=== PATIENT | male | born 1965 | race Caucasian/White ===

== ENCOUNTER 2022-04-08 00:34 | Day surgery (SDC) | payer OTHER, SELFPAY ==
[2022-03-25 10:43] VITALS: BMI 34.4
--- NOTE | 2022-04-07 10:47 | P.HP_ITS ---
History of Present Illness History of Present Illness Consent: Risks, benefits, and alternatives have been discussed and questions answered. Patient agrees to proceed with procedure. Chief complaint: neoplasm screening Narrative: Noe Ferrer is a 56 year old male Referred for colon cancer screening. Review of Systems Review of Systems: All systems reviewed & are unremarkable except as noted in HPI and below PMFSH Past Medical History Medical History Arthritis GERD (gastroesophageal reflux disease) Family History Family History Father Heart disease Malignant neoplasm of prostate Mother No problems noted. Sibling CLL (chronic lymphocytic leukemia) Social History Social History Smoking status: Never smoker Alcohol intake: current Drinks per week: 14 Substance use: never Living arrangements: with family Occupation/Education: occupation Additional occupation/education comments: [employer] at [employer] Spiritual care concerns: No Meds Home Medications and Allergies Home Medications Medication Instructions Recorded Confirmed Type celecoxib 200 mg capsule (Celebrex) 200 mg PO DAILY PRN pain #90 caps 02/04/22 03/25/22 Rx lisinopril 10 mg tablet 10 mg PO DAILY #90 tabs 02/04/22 03/25/22 Rx tadalafil 10 mg tablet (Cialis) 10 mg PO DAILY #90 tabs 02/04/22 03/25/22 Rx Allergies Allergy/AdvReac Type Severity Reaction Status Date / Time No Known Allergies Allergy Mild Verified 04/08/22 08:26 Exam Const: General: alert Orientation/consciousness: patient oriented x3 Resp: Auscultation: clear to auscultation bilaterally Cardio: Rhythm: regular rhythm GI: GI Palp: Yes Soft to palpation and No Tenderness to palpation present (GI) Neuro: General: patient oriented x3 Assessment and Plan Assessment and plan (1) Colon cancer screening: Code(s): Z12.11 - Encounter for screening for malignant neoplasm of colon Status: Acute Assessment and Plan: Colonoscopy with possible biopsy or polypectomy or cautery or injection of substances.
[2022-04-08 08:27] VITALS: BP 147/88; PULSE 66; RESP 18; TEMP 36.1; O2SAT 96
[2022-04-08] MEDS: LACTATED RINGERS 1,000 ML 150 ML IV CONT (08:37)
--- NOTE | 2022-04-08 09:02 | P.PNAN_ITS ---
Anes - Initial Pre Proc Eval Procedure: Operation Date: 04/08/22 09:15 Proposed Procedures p Screening Colonoscopy - Nestor James MD Date/Time: 04/08/22 09:02 Surgeon: Nestor James MD Pre Op Diagnosis: neoplasm screening Patient Data Age: 56 Gender: M Height: 1.78 m Weight: 112 kg Last Vital Signs Temp 97 F L 04/08/22 08:27 Pulse 66 04/08/22 08:27 Resp 18 04/08/22 08:27 BP 147/88 H 04/08/22 08:27 Pulse Ox 96 04/08/22 08:27 O2 Del Method Room Air 04/08/22 08:27 Allergies Allergy/AdvReac Type Severity Reaction Status Date / Time No Known Allergies Allergy Mild Verified 04/08/22 08:26 Home Medications Medication Instructions Recorded Confirmed Type celecoxib 200 mg capsule (Celebrex) 200 mg PO DAILY PRN pain #90 caps 02/04/22 03/25/22 Rx lisinopril 10 mg tablet 10 mg PO DAILY #90 tabs 02/04/22 03/25/22 Rx tadalafil 10 mg tablet (Cialis) 10 mg PO DAILY #90 tabs 02/04/22 03/25/22 Rx Patient hx anesthesia problems: none Family hx anesthesia problems: none Results Review: All pre-operative results and documents have been reviewed as part of the pre- operative evaluation. [facility] Past Medical History Medical History Arthritis GERD (gastroesophageal reflux disease) Family History Family History Father Heart disease Malignant neoplasm of prostate Mother No problems noted. Sibling CLL (chronic lymphocytic leukemia) Social History Social History Smoking status: Never smoker Alcohol intake: current Drinks per week: 14 Substance use: never Living arrangements: with family Occupation/Education: occupation Additional occupation/education comments: [employer] at [employer] Spiritual care concerns: No Anes - Eval Final PreProcedure Day of Procedure 04/08/22 09:02 Patient weight: obese Heart: regular rate and rhythm Lungs: clear to auscultation Airway: Mallampati scale class II Neurological: alert and oriented Last oral intake: >/= 8 hours ASA classification: II Emergent: no Anesthetic plan: proceed Anesthesia type and monitoring: general GIVS and standard monitoring Results Review: All pre-operative results and documents have been reviewed as part of the pre- operative evaluation. Informed Consent: The patient's anesthetic plan and its attendant risks and benefits were discussed with the patient/family/POA. Questions were solicited and answers provided to the satisfaction of the patient/family/POA.
[2022-04-08] MEDS: SIMETHICONE ORAL SUSPENSION 20 MG/0.3 ML 30 ML BOTTLE 0.6 ML IRRIGATION (09:15)
[2022-04-08 09:25] VITALS: BP 138/69; PULSE 76; RESP 22; O2SAT 91
[2022-04-08 09:35] VITALS: BP 137/65; PULSE 69; RESP 22; O2SAT 96
[2022-04-08 09:45] VITALS: BP 132/91; PULSE 70; RESP 21; O2SAT 96
== END 2022-04-08 09:57 | disposition home or self-care (01) ==
PROVIDERS: PCP Family Medicine; Visit Provider Internal Medicine Gastroenterology
PROC: 0DJD8ZZ Inspection of Lower Intestinal Tract, Via Natural or Artificial Opening Endoscopic (ICD-10-PCS; CPT 45378; principal; 2022-04-08 09:15)
DX: Z12.11 Encounter for screening for malignant neoplasm of colon (principal); K57.30 Diverticulosis of large intestine without perforation or abscess without bleeding; E66.9 Obesity, unspecified; Z68.35 Body mass index [BMI] 35.0-35.9, adult
CPT/HCPCS: 45378; J2704; J7120

== ENCOUNTER 2022-09-21 06:15 | Day surgery (SDC) | payer OTHER, SELFPAY ==
[2022-09-13 11:55] VITALS: BMI 35.1
[2022-09-21 10:37] VITALS: BP 154/72; PULSE 76; RESP 18; TEMP 36.2; O2SAT 98
[2022-09-21] MEDS: LACTATED RINGERS 1,000 ML 150 ML IV CONT (10:50)
--- NOTE | 2022-09-21 11:03 | PM.HPGS ---
History of Present Illness History of Present Illness Consent: Risks, benefits, and alternatives have been discussed and questions answered. Patient agrees to proceed with procedure. Chief complaint: Localized swelling, mass and lump, neck. Narrative: Noe Ferrer is a 56 year old male Who recently has had a great deal of indigestion and more recently has had the sensation of something like a lump or something stuck in the throat. Review of Systems Review of Systems: All systems reviewed & are unremarkable except as noted in HPI and below PMFSH Past Medical History Medical History Arthritis GERD (gastroesophageal reflux disease) Family History Family History Father Heart disease Malignant neoplasm of prostate Mother No problems noted. Sibling CLL (chronic lymphocytic leukemia) Social History Social History Smoking status: Never smoker Alcohol intake: current Drinks per week: 14 Substance use: never Living arrangements: alone Occupation/Education: occupation Additional occupation/education comments: [employer] at [employer] Spiritual care concerns: No Meds Home Medications and Allergies Home Medications Medication Instructions Recorded Confirmed Type lisinopril 10 mg tablet 10 mg PO DAILY #90 tabs 08/05/22 09/13/22 Rx tadalafil 10 mg tablet 10 mg PO DAILY #90 tabs 08/16/22 09/13/22 Rx tramadol 50 mg tablet 50 mg PO BID PRN pain #30 tabs 08/23/22 09/13/22 Rx celecoxib 200 mg capsule (Celebrex) 200 mg PO DAILY 09/13/22 09/13/22 History Allergies Allergy/AdvReac Type Severity Reaction Status Date / Time No Known Allergies Allergy Mild Verified 09/21/22 10:36 Vital Signs Vital Signs - 24 hr 09/21/22 10:37 Temperature 36.2 C L Pulse Rate 76 Respiratory Rate 18 Blood Pressure 154/72 H Pulse Oximetry 98 Oxygen Delivery Room Air Exam Const: General: alert Orientation/consciousness: patient oriented x3 Resp: Auscultation: clear to auscultation bilaterally Cardio: Rhythm: regular rhythm GI: GI Palp: Yes Soft to palpation and No Tenderness to palpation present (GI) Neuro: General: patient oriented x3 Assessment and Plan Assessment and plan (1) GERD (gastroesophageal reflux disease): Code(s): K21.9 - Gastro-esophageal reflux disease without esophagitis Status: Acute Assessment and Plan: EGD with possible biopsy or dilatation or cautery.
--- NOTE | 2022-09-21 11:28 | P.PNAN_ITS ---
Anes - Initial Pre Proc Eval Procedure: Operation Date: 09/21/22 13:00 Proposed Procedures p Esophagogastroduodenoscopy - Nestor James MD Date/Time: 09/21/22 11:28 Surgeon: Nestor James MD Pre Op Diagnosis: Localized swelling, mass and lump, neck. Patient Data Age: 56 Gender: M Height: 1.78 m Weight: 112.7 kg Last Vital Signs Temp 97.2 F L 09/21/22 10:37 Pulse 76 09/21/22 10:37 Resp 18 09/21/22 10:37 BP 154/72 H 09/21/22 10:37 Pulse Ox 98 09/21/22 10:37 O2 Del Method Room Air 09/21/22 10:37 Allergies Allergy/AdvReac Type Severity Reaction Status Date / Time No Known Allergies Allergy Mild Verified 09/21/22 10:36 Home Medications Medication Instructions Recorded Confirmed Type lisinopril 10 mg tablet 10 mg PO DAILY #90 tabs 08/05/22 09/13/22 Rx tadalafil 10 mg tablet 10 mg PO DAILY #90 tabs 08/16/22 09/13/22 Rx tramadol 50 mg tablet 50 mg PO BID PRN pain #30 tabs 08/23/22 09/13/22 Rx celecoxib 200 mg capsule (Celebrex) 200 mg PO DAILY 09/13/22 09/13/22 History Patient hx anesthesia problems: none Family hx anesthesia problems: none Results Review: All pre-operative results and documents have been reviewed as part of the pre- operative evaluation. [facility] Past Medical History Medical History Arthritis GERD (gastroesophageal reflux disease) Family History Family History Father Heart disease Malignant neoplasm of prostate Mother No problems noted. Sibling CLL (chronic lymphocytic leukemia) Social History Social History Smoking status: Never smoker Alcohol intake: current Drinks per week: 14 Substance use: never Living arrangements: alone Occupation/Education: occupation Additional occupation/education comments: [employer] at [employer] Spiritual care concerns: No Anes - Eval Final PreProcedure Day of Procedure 09/21/22 11:28 Patient weight: obese Heart: regular rate and rhythm Lungs: clear to auscultation Airway: Mallampati scale class III Neurological: alert and oriented Last oral intake: >/= 8 hours ASA classification: III Emergent: no Anesthetic plan: proceed Anesthesia type and monitoring: general GIVS and standard monitoring Results Review: All pre-operative results and documents have been reviewed as part of the pre- operative evaluation. Informed Consent: The patient's anesthetic plan and its attendant risks and benefits were discussed with the patient/family/POA. Questions were solicited and answers provided to the satisfaction of the patient/family/POA.
[2022-09-21 11:50] VITALS: BP 135/91; PULSE 77; RESP 20; O2SAT 96
[2022-09-21 12:00] VITALS: BP 139/91; PULSE 75; RESP 23; O2SAT 99
[2022-09-21 12:10] VITALS: BP 151/97; PULSE 74; RESP 19; O2SAT 99
== END 2022-09-21 12:21 | disposition home or self-care (01) ==
PROVIDERS: PCP Nurse Practitioner Family; Visit Provider Internal Medicine Gastroenterology
PROC: 0DJ08ZZ Inspection of Upper Intestinal Tract, Via Natural or Artificial Opening Endoscopic (ICD-10-PCS; CPT 43235; principal; 2022-09-21 13:00)
DX: K21.9 Gastro-esophageal reflux disease without esophagitis (principal); E66.9 Obesity, unspecified; Z68.35 Body mass index [BMI] 35.0-35.9, adult
CPT/HCPCS: 43239; 73721; 88305; J3010; J7120

== ENCOUNTER 2022-09-21 08:53 | Outpatient (CLI) | payer OTHER, SELFPAY ==
--- NOTE | ~2022-09-21 | MR_ITS ---
EXAMINATION: MR knee RT wo con DATE: 09/21/2022 09:29 INDICATION: Unilateral primary osteoarthritis of the right knee. TECHNIQUE: Magnetic resonance imaging (MRI) of the right knee was performed without intravenous contr ast. Sequences included coronal PD-weighted FSE, coronal PD-weighted FS FSE, sagittal T2-weighted FS E, sagittal PD-weighted FS FSE and axial PD weighted fat saturated FSE. COMPARISON: Right knee radiographs dated 08/23/2022 FINDINGS: Medial compartment: Complex tear at the posterior horn of the medial meniscus. Partial-thickness chondral ulceration and deeper fissuring along the anterior to central weightbearing medial femoral condyle. Articular cartil age at the medial tibial plateau is relatively preserved. Small marginal osteophytes are present. Lateral compartment: Complex tear diffusely throughout the lateral meniscus. Extensive deep chondral ulceration in places likely full or near full-thickness throughout much of the weightbearing lateral femoral condyle. Amor tional deep chondral ulceration along the lateral tibial plateau with suggestion of some remodeling o f the articular cortex. Small marginal osteophytes are present. Patellofemoral compartment: Deep chondral fissuring without degenerative subchondral changes at the central aspect of the lateral patellar facet. Deep chondral ulceration with underlying cortical irregularity and a few foci of und erlying edema-like signal change at the lateral trochlea. Partial thickness chondral ulceration and f issuring without degenerative subchondral changes at the trochlear groove and medial trochlea. Small patellar and moderate sized trochlear marginal osteophytes are present. Ligaments and tendons: Anterior and posterior cruciate ligaments are normal. The medial collateral ligament and fibular kd ateral ligament complex are normal. Patellar tendon is normal. Mild distal quadriceps tendinopathy wi thout tear. The visualized medial and lateral hamstring tendons as well as the iliotibial band are no rmal. Fluid: Small knee joint effusion and associated synovitis at the suprapatellar pouch. There are couple loose osteochondral bodies in the recess along the cephalad margin of the posterior lateral femoral condyl e. Osseous/other: Bone alignment is normal. No fracture or pathologic marrow replacing process. IMPRESSION: 1. Complex medial and lateral meniscal tears. 2. Tricompartmental osteoarthritis, moderate severity with extensive moderate and high-grade chondrom alacia in the lateral and patellofemoral compartments. Reviewed, dictated and finalized at location B. IMPRESSION: 1. Complex medial and lateral meniscal tears. 2. Tricompartmental osteoarthritis, moderate severity with extensive moderate a nd high-grade chondromalacia in the lateral and patellofemoral compartments.
== END 2022-09-21 08:54 | disposition home or self-care (01) ==
PROVIDERS: PCP Nurse Practitioner Family; Visit Provider Nurse Practitioner Family
DX: M17.11 Unilateral primary osteoarthritis, right knee (principal); S83.271A Complex tear of lateral meniscus, current injury, right knee, initial encounter; S83.231A Complex tear of medial meniscus, current injury, right knee, initial encounter; X58.XXXA Exposure to other specified factors, initial encounter
CPT/HCPCS: 73721